=== PATIENT | female | born 1980 | race Caucasian/White ===

== ENCOUNTER 2018-07-14 20:55 | Emergency (ER) | payer SELFPAY ==
[~2018-07-14] VITALS: Ht 157.5 cm; Wt 82.0 kg
[2018-07-14 22:34] VITALS: BP 149/89
== END 2018-07-14 22:51 | disposition home or self-care (01) ==
LOC: ER 20:55
DX: R07.89 Other chest pain (principal); Z98.890 Other specified postprocedural states; V49.88XA Car occupant (driver) (passenger) injured in other specified transport accidents, initial encounter; Y93.89 Activity, other specified; Y92.89 Other specified places as the place of occurrence of the external cause; Y99.8 Other external cause status
CPT/HCPCS: 93005; 99283